=== PATIENT | male | born 2000 | race Caucasian/White ===

== ENCOUNTER 2024-08-25 20:41 | Emergency (ER) | payer MEDICAID, SELFPAY ==
[2024-08-25 20:46] VITALS: BMI 17.7
[2024-08-25 21:10] VITALS: BP 111/76; PULSE 95; RESP 17; TEMP 36.5; O2SAT 97
--- NOTE | 2024-08-25 21:12 | EDNOTE_ITS ---
ED Animal Bite RME/HPI General Chief Complaint: Animal Bite Stated Complaint: DOG BITE Time Seen by Provider: 08/25/24 21:46 Arrival date/time: 08/25/24 20:41 Limitations: no limitations RME / HPI RME / HPI narrative: 23-year-old male brought in by mom for evaluation of dog bites to legs and upper extremities. Patient reports the bleeding of his symptoms was well-controlled prior to arrival to the ED. patient reports that he was taking a shower when he heard the dogs fighting in the living room. When he went to break them up they attacked him. Patient states that they were his dogs and denies abnormal a ctivity prior to the attack. Patient's mom reports the dogs are not vaccinated and have a history of prior attack of her dad's friend. Related Data Previous Rx's ?Medication ?Instructions ?Recorded amoxicillin 500 mg-potassium 1 tab PO TID dog bite 10 days #30 08/25/24 clavulanate 125 mg tablet tabs (Augmentin) ibuprofen 800 mg tablet 800 mg PO Q8H PRN pain #14 t abs 08/25/24 Allergies Allergy/AdvReac Type Severity Reaction Status Date / Time No Known Allergies Allergy Verified 08/25/24 20:46 Review of Systems Constitutional Constitutional: Denies body ache(s), Denies fever(s), Denies frequent falls and Denies weakness Eyes Eyes: Denies blind spots and Denies change in vision ENT Ears, Nose, Mouth, and Throat: Denies vertigo Cardiovascular Cardiovascular: Denies acrocyanosis, Denies chest pain and Denies dyspnea Respiratory Respiratory: Denies cough and Denies dyspnea Gastrointestinal Gastrointestinal: Denies nausea and Denies vomiting Musculoskeletal Musculoskeletal: Denies abnormal gait, Denies stiffness and Denies tingling Integumentary/Breasts Skin/Breast: Reports lesions and Reports other (Laceration diffuse legs, right arm, posterior trunk ) Neurologic Neurologic: Denies abnormal gait, Denies frequent falls, Denies tingling, Denies vertigo and Denies weakness Past Medical History Social History SMOKING STATUS: Current every day smoker ED Exam General Limitations: Present no limitations General appearance: Present alert and in no apparent distress Head Head exam: Present atraumatic and normocephalic Eye Eye exam: Present normal appearance and EOMI ENT ENT exam: Present mucous membranes moist Neck Neck exam: Present normal inspection and full ROM Respiratory Respiratory exam: Absent respiratory distress or wheezes Cardiovascular Cardiovascular exam: Present regular rate and +S1 Extremities Exam Extremities exam: Present full ROM Expanded Lower Extremity Exam Hip/Pelvis exam: Present full ROM Upper leg exam: Present full ROM Knee exam: Present full ROM Lower leg exam: Present full ROM Ankle exam: Present full ROM Neurovascular/Tendon exam: Present normal capillary refill; Absent pulse deficit Gait: observed and normal Back Exam Back exam: Present full ROM Neurological Exam Neurological exam: Present alert and normal gait Psychiatric Psychiatric exam: Present normal affect Skin Skin exam: Present other (Diffuse lacerations with bleeding well-controlled to posterior right lower extremity, bilateral anterior lower extremities, right axillary region, right sided mid posterior thoracic trunk.) Expanded Skin Exam Type of lesion: Present laceration and bite/sting Distribution: Present back, LUE, LLE, RUE and RLE Description: Present size (small, largest laceration less than 2cm. ) Course Quality Measures none Orders Category Date Time Status Miscellaneous Nursing Order NOW Care 08/25/24 21:11 Completed Amoxicillin/Pot Clav 875 [Augmentin 875] Med 08/25/24 21:10 Discontinued 1 tab PO X1 ONE HYDROcodone*/APAP 5/325 [[place] 5/325] Med 08/25/24 21:10 Discontinued 1 tab PO X1 ONE Tetanus, Diphtheria Toxoids/Pf [Tenivac-Adult] Med 08/25/24 21:10 Discontinued 0.5 ml IMI .ONCE ONE Vital Signs Vital signs: Vital Signs Temperature 97.7 F 08/25/24 21:10 Pulse Rate 95 08/25/24 21:10 Respiratory Rate 17 08/25/24 21:10 Blood Pressure 111/76 08/25/24 21:10 Pulse Oximetry (%) 97 08/25/24 21:10 Oxygen Delivery Method Room Air 08/25/24 21:10 Pulse ox 97% on room air, within normal limits. Animal Bite MDM Narrative MDM Narrative:: 23-year-old male brought in by mom for evaluation of dog bite. Diffuse small puncta to bilateral lower extremities, right axillary region, and mid thoracic trunk. Wounds were thoroughly irrigated and explored with no apparent muscle or bony involvement. Given nature of the laceration and superficial depth no suture repair required today. Patient's tetanus was updated in the department and he was given his first dose of Augmentin. I stressed that he needs to take the entire course of Augmentin and keep his wounds clean and dry. Advised patient and his mom to monitor the dogs for abnormal behavior (patient's mom reported that the dogs had likely already been destroyed) and to return for rabies prophylaxis if any concern. She reiterated that the dogs more indoor pets and had been behaving normally and suspected they were being territorial as they were being fed. Patient stable at time of discharge. Return precautions provided. Patient data External records reviewed:: [facility] previous records Clinical information provided by:: patient and family Social determinants that could affect healthcare access:: none Patient has the following chronic illnesses:: None reported. How is presenting disease/condition affected by chronic disease/condition?: no chronic disease Evaluation data The following diagnostics were reviewed and interpreted by me:: other (specify) Lab and/or radiology exams considered but not ordered:: Considered not ordered. Interpretation Summary: Considered not ordered. Medications / Prescriptions Medications or Prescriptions considered but not ordered:: Rx given. Medication administrations:: Medication Administration History Discontinued Medications Hydrocodone Bitart/Acetaminophen (Hydrocodone/Apap 5/325 Tablet) 1 tab PO X1 ONE Stop: 08/25/24 21:11 Last Admin: 08/25/24 21:39 Dose: 1 tab Documented By: ROX Amoxicillin/Clavulanate Potassium (Amoxicillin/Pot Clav 875 Tablet) 1 tab PO X1 ONE Stop: 08/25/24 21:11 Last Admin: 08/25/24 21:39 Dose: 1 tab Documented By: ROX Tetanus/Diphtheria Toxoids (Tetanus,Diphtheria Toxoids/Pf (Adult) 0.5 Ml Syringe) 0.5 ml IMi .ONCE ONE Stop: 08/25/24 21:11 Last Admin: 08/25/24 21:41 Dose: 0.5 ml Documented By: ROX Rx given. Consultations Consultation(s) initiated? (list below): No Diagnosis Differential diagnosis animal bite: bite by animal, dog bite and rabies contact Most likely diagnosis given after review of the tests above:: Dog bite. Admission Indicated Admission indicated?: not indicated Admission Request Was there a request for admission?: No Disposition Plan Disposition Plan: Discharge Discharge Attestation Discharge Attestation: The patient and all family members were given an opportunity to ask questions and understood the discharge instructions. Discharge instructions specifically effects, indications for sooner follow up or return to the emergency department, and the expected course of current diagnosis. Patient condition: Stable Discharge Plan Plan Patient Disposition: HOME (Self Care) Disposition Comment: stable Prescriptions/Referrals Prescriptions/Med Rec: New amoxicillin-pot clavulanate [Augmentin] 500-125 mg tablet 1 tab PO TID 10 Days Qty: 30 0RF ibuprofen 800 mg tablet 800 mg PO Q8H PRN (Reason: pain) Qty: 14 0RF Problem List Clinical Impression: Bite by animal, Rabies contact Impression comment: Keep wounds clean and dry with clean dressing every 12 hours. Continue to monitor for signs of infection. Take Augmentin twice daily for the next x 10 days. Monitor dogs for abnormal behavior and return to the ED if concern for rabies infection. Take ibuprofen or Tylenol every 6 hours as needed for pain. Return to the ED if your symptoms worsen or change. Patient/Caregiver Discharge Instructions Print Language: Icelandic Stand Alone Forms: Jamilah Award Info., Patient Portal Info Letter PA/CHATO Supervising Physician PA/CHATO Supervising Physician: Dr. Mathews
[2024-08-25] MEDS: AMOXICILLIN/POT CLAV 875 TABLET 1 TAB PO (21:39)
[2024-08-25] MEDS: HYDROcodone/APAP 5/325 TABLET 1 TAB PO (21:39)
[2024-08-25] MEDS: TETANUS,DIPHTHERIA TOXOIDS/PF (ADULT) 0.5 ML SYRINGE IMi (21:41)
== END 2024-08-25 22:28 | disposition home or self-care (01) ==
LOC: SERX 21:57
PROVIDERS: Emergency Provider Emergency Medicine
DX: S81.812A Laceration without foreign body, left lower leg, initial encounter (principal); S81.811A Laceration without foreign body, right lower leg, initial encounter; S41.111A Laceration without foreign body of right upper arm, initial encounter; S21.211A Laceration without foreign body of right back wall of thorax without penetration into thoracic cavity, initial encounter; W54.0XXA Bitten by dog, initial encounter; Z20.3 Contact with and (suspected) exposure to rabies
CPT/HCPCS: 90471; 90714; 99283; A9270